=== PATIENT | female | born 1975 | race Caucasian/White ===

== ENCOUNTER → 2017-02-21 | Outpatient (CLI) | payer BC | LOC: BMCIMAGING 08:59 | PROVIDERS: ATTEND Obstetrics & Gynecology | DX: Z12.31 Encounter for screening mammogram for malignant neoplasm of breast (principal) | CPT/HCPCS: G0202 ==

== ENCOUNTER 2017-03-21 13:09 | Observation (INO) | payer BC ==
--- NOTE | 2017-03-21 13:25 | CPEKG ---
Heart Rate: 88 RR Interval: 682 P-R Interval: 128 QRSD Interval: 84 QT Interval: 368 QTC Interval: 446 P [place]: 63 QRS [place]: 65 T Wave [place]: 43 EKG Severity - NORMAL ECG - EKG Impression: SINUS RHYTHM Electronically Signed By: Cordelia Sin 21-Mar-2017 20:57:49
--- NOTE | 2017-03-21 13:25 | CPEKG ---
Heart Rate: 88 RR Interval: 682 P-R Interval: 128 QRSD Interval: 84 QT Interval: 368 QTC Interval: 446 P [place]: 63 QRS [place]: 65 T Wave [place]: 43 EKG Severity - NORMAL ECG - EKG Impression: SINUS RHYTHM Electronically Signed By: Cordelia Sin 21-Mar-2017 20:57:49
--- NOTE | 2017-03-21 13:47 | EDPHY ---
General Narrative: CHIEF COMPLAINT: Abnormal EKG, chest pain for 1 year HISTORY OF PRESENT ILLNESS: Patient complains of chest pain for nearly 1 year, and being sent here for possible abnormal EKG. She had an EKG done today as part of a physical for her work. There was reportedly abnormality of the EKG, thus they sent her here. She has had ongoing chest pain for approximately a year due to multiple orthopedic musculoskeletal injuries. It is a reproducible pain. She has been diagnosed with costochondritis after workup from outside facilities. She has been treated by physical therapy for this and anti-inflammatories by primary care physician. Pain is not exertional. It is worse with palpation on the ribs. Does not radiate. No shortness of breath. No diaphoresis. No nausea or vomiting. No recent travel or surgery. No history of venous thrombolic event. No exogenous hormone use. She no previous venous thrombolic event. She has no previous diagnosis of hypertension, diabetes, dyslipidemia coronary artery disease. No other associated complaints or modifying factors REVIEW OF SYSTEMS: Ten systems reviewed and are negative unless otherwise noted in the HPI PCP: Dr. Spaulding SPECIALISTS: None PAST MEDICAL HISTORY: None PAST SURGICAL HISTORY: Knee surgery x2 SOCIAL HISTORY: Nonsmoker. No alcohol. No drug use. 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 No wheezing or rhonchi or crackles. Cardiovascular: Regular rate and rhythm. No murmur. Pulses intact distally symmetrically Gastrointestinal: Abdomen is soft and nontender Back: non-tender, no bony abnormalities Neurological: A&O, nonfocal, normal gait Skin: Warm and dry, no rash Extremities: Nontender, no pedal edema Psychiatric: Mood and affect normal DIFFERENTIAL DIAGNOSES: Including but not limited to costochondritis, RC, pericarditis, ACS, coronary artery disease MDM: 1:48 p.m. Reportedly abnormal EKG pre-hospital that is not abnormal on my interpretation and that of Dr. Sin. EKG this facilities normal sinus rhythm with no ischemia. No dysrhythmia or cardiac conduction delay. Her chest pain that she describes is reproducible. It is consistent with previous musculoskeletal injuries. I have ordered laboratory studies to rule out ACS. She is in no acute distress. Vital signs are stable. Perc negative. 2:30 p.m. Laboratory studies thus far reveal negative CBC and chemistry. Troponin is positive although slightly elevated. EKG is unremarkable. This is been interviewed by Dr. Sin and myself. I discussed the case with Dr. Sin. He would like me to order echo and D-dimer and admit the patient to the hospital. Hospitalist has been paged 2:45 p.m. I discussed case with hospitalist Dr. Grey. He will admit the patient is service. He does request a D-dimer an echo which body been ordered. I will also consult Cardiology. 3:01 p.m. Case discussed with Cardiology GASTROENTEROLOGY NURSE, Vamsi. He will provide consultation. He will see the patient in the ED. 3:28 p.m. D-dimer is negative. Echo currently in progress 4:05 p.m. Echo was reportedly within normal limits per the Cardiology GASTROENTEROLOGY NURSE, Vamsi. He plans for CT coronary angiogram. She is admitted in stable condition awaiting bed placement. Vital signs remained stable. EKG interpretation: Dr. Sin Normal sinus rhythm. No ischemia. No bundle branch block - Diagnostics Imaging Results: Imaging Impressions Chest X-Ray 03/21/17 13:47 Impression: Clear lungs. No acute process. - History Smoking Status: Never smoked - Objective Vital Signs: Initial Vital Signs Temperature (C) 98.1 F 03/21/17 13:11 Heart Rate 84 03/21/17 13:11 Respiratory Rate 18 03/21/17 13:11 Blood Pressure 110/74 03/21/17 13:11 O2 Sat (%) 99 03/21/17 13:11 O2 Delivery Mode Room Air Allergies/Adverse Reactions: No Known Allergies Allergy (Verified 03/21/17 13:11) Home Medications: Medication Instructions Recorded NK [No Known Home Meds] 03/21/17 Laboratory Results: Laboratory Results 03/21/17 13:55 03/21/17 13:55 03/21/17 03/21/17 03/21/17 13:55 13:55 13:55 WBC RBC Hgb Hct MCV MCH MCHC RDW Plt Count MPV Neut % (Auto) Lymph % (Auto) [place] % (Auto) Eos % (Auto) Baso % (Auto) Nucleat RBC Rel Count Absolute Neuts (auto) Absolute Lymphs (auto) Absolute Monos (auto) Absolute Eos (auto) Absolute Basos (auto) Absolute Nucleated RBC Immature Gran % Immature Gran # PT INR APTT D-Dimer Sodium 144 mEq/L mEq/L (134-144) Potassium 3.6 mEq/L mEq/L (3.5-5.2) Chloride 101 mEq/L mEq/L (97-110) Carbon Dioxide 26 mEq/l mEq/l (22-31) Anion Gap 17 mEq/L H mEq/L (8-16) BUN 12 mg/dL mg/dL (7-23) Creatinine 0.7 mg/dL mg/dL (0.6-1.0) Estimated GFR > 60 Glucose 99 mg/dL mg/dL (70-100) Calcium 10.1 mg/dL mg/dL (8.5-10.4) Magnesium 1.7 mg/dL mg/dL (1.6-2.3) Troponin I 0.064 ng/mL H ng/mL (0.000-0.034) NT-Pro-B Natriuret Pep 89 pg/mL pg/mL (0-125) Lipase 72 IU/L IU/L (23-300) Beta HCG, Qual NEGATIVE 03/21/17 03/21/17 13:55 13:55 WBC 6.98 10^3/uL 10^3/uL (3.80-9.50) RBC 4.67 10^6/uL 10^6/uL (4.18-5.33) Hgb 15.2 g/dL g/dL (12.6-16.3) Hct 43.3 % % (38.0-47.0) MCV 92.7 fL fL (81.5-99.8) MCH 32.5 pg pg (27.9-34.1) MCHC 35.1 g/dL g/dL (32.4-36.7) RDW 11.7 % % (11.5-15.2) Plt Count 249 10^3/uL 10^3/uL (150-400) MPV 10.2 fL fL (8.7-11.7) Neut % (Auto) 66.4 % % (39.3-74.2) Lymph % (Auto) 26.5 % % (15.0-45.0) [place] % (Auto) 4.9 % % (4.5-13.0) Eos % (Auto) 2.0 % % (0.6-7.6) Baso % (Auto) 0.1 % L % (0.3-1.7) Nucleat RBC Rel Count 0.0 % % (0.0-0.2) Absolute Neuts (auto) 4.63 10^3/uL 10^3/uL (1.70-6.50) Absolute Lymphs (auto) 1.85 10^3/uL 10^3/uL (1.00-3.00) Absolute Monos (auto) 0.34 10^3/uL 10^3/uL (0.30-0.80) Absolute Eos (auto) 0.14 10^3/uL 10^3/uL (0.03-0.40) Absolute Basos (auto) 0.01 10^3/uL L 10^3/uL (0.02-0.10) Absolute Nucleated RBC 0.00 10^3/uL 10^3/uL (0-0.01) Immature Gran % 0.1 % % (0.0-1.1) Immature Gran # 0.01 10^3/uL 10^3/uL (0.00-0.10) PT 13.5 SEC SEC (12.0-15.0) INR 1.04 (0.83-1.16) APTT 27.7 SEC SEC (23.0-38.0) D-Dimer < 0.27 ug/mLFEU ug/mLFEU (0.00-0.50) Sodium Potassium Chloride Carbon Dioxide Anion Gap BUN Creatinine Estimated GFR Glucose Calcium Magnesium Troponin I NT-Pro-B Natriuret Pep Lipase Beta HCG, Qual Medications Given: Discontinued Medications Aspirin (Aspirin) 324 mg PO EDNOW ONE Stop: 03/21/17 14:39 Last Admin: 03/21/17 15:11 Dose: 324 mg Departure - Departure Disposition: [facility] Acute Clinical Impression: Acute chest pain, Elevated troponin Condition: Good
[2017-03-21 14:04] LABS: PLATELET COUNT 249 10^3/uL (150-400)
[2017-03-21 14:28] LABS: INR 1.04 (0.83-1.16); PROTIME(PATIENT) 13.5 SEC (12.0-15.0)
[2017-03-21] MEDS ORDERED: ASPIRIN 81 MG CHEWABLE TAB PO ONE (14:38)
[2017-03-21] MEDS ORDERED: ACETAMINOPHEN 325 MG TAB PO PRN (14:47)
[2017-03-21] MEDS ORDERED: ONDANSETRON 4 MG/2 ML VIAL IVP PRN (14:47)
[2017-03-21] MEDS ORDERED: ONDANSETRON DISINTEGRATING 4 MG TAB PO PRN (14:47)
[2017-03-21] MEDS ORDERED: ALBUTEROL 3 ML DEYVIAL IH PRN (14:47)
[2017-03-21] MEDS ORDERED: NITROGLYCERIN 0.4 MG BTL SL PRN (14:51)
--- NOTE | 2017-03-21 15:12 | PDGENHP ---
History and Physical - Chief Complaint CP - History of Present Illness Pt is a 41 yo female who was sent to the urgent care by her employer for the evaluation of CP which has been intermittent for about one year. At urgent care she reportedly had an abnormal EKG and was sent to the E.D. In the ED she had an indeterminate troponin. Her EKG reads NSR, but appears to have slight ST depression on V3, V4, V5. She has been given an full dose Aspirin. Cards has been consulted. TTE is pending, D-dimer is pending. Her other labs look unremarkable. She has hx of costonchondirits. She has been treated for this by her PCP with anti-inflammatories, as well as PT. No history of venous thrombolic event. No exogenous hormone use. She no previous venous thrombolic event. She has no previous diagnosis of hypertension , diabetes, dyslipidemia coronary artery disease. No other associated complaints or modifying factors PCP: Dr. Spaulding PAST MEDICAL HISTORY: costochondritis PAST SURGICAL HISTORY: Knee surgery x2 SOCIAL HISTORY: Nonsmoker. No alcohol. No drug use. 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 FAMILY HISTORY: no significant cardiac hx History Information - Allergies/Home Medication List Allergies/Adverse Reactions: No Known Allergies Allergy (Verified 03/21/17 13:11) Home Medications: NK [No Known Home Meds] 03/21/17 [Last Taken Unknown] I have personally reviewed and updated: medical history, social history - Social History Smoking Status: Never smoked Review of Systems Review of Systems: ROS: 10pt was reviewed & negative except for what was stated in HPI & below Physical Exam Physical Exam: Temp Pulse Resp BP Pulse Ox 36.7 C 84 18 110/74 99 03/21/17 13:11 03/21/17 13:11 03/21/17 13:11 03/21/17 13:11 03/21/17 13:11 Constitutional: no apparent distress Eyes: PERRL, EOMI Ears, Nose, Mouth, Throat: moist mucous membranes, hearing normal Cardiovascular: regular rate and rhythym, no murmur, rub, or gallop, other ( reproducible chest pain), No edema Respiratory: no respiratory distress, no rales or rhonchi, clear to auscultation Gastrointestinal: normoactive bowel sounds, soft, non-tender abdomen Skin: warm Musculoskeletal: full muscle strength Neurologic: AAOx3, sensation intact bilaterally Psychiatric: interacting appropriately, not anxious, not encephalopathic Lab Data & Imaging Review 03/21/17 13:55 03/21/17 13:55 WBC 6.98 10^3/uL (3.80-9.50) 03/21/17 13:55 RBC 4.67 10^6/uL (4.18-5.33) 03/21/17 13:55 Hgb 15.2 g/dL (12.6-16.3) 03/21/17 13:55 Hct 43.3 % (38.0-47.0) 03/21/17 13:55 MCV 92.7 fL (81.5-99.8) 03/21/17 13:55 MCH 32.5 pg (27.9-34.1) 03/21/17 13:55 MCHC 35.1 g/dL (32.4-36.7) 03/21/17 13:55 RDW 11.7 % (11.5-15.2) 03/21/17 13:55 Plt Count 249 10^3/uL (150-400) 03/21/17 13:55 MPV 10.2 fL (8.7-11.7) 03/21/17 13:55 Neut % (Auto) 66.4 % (39.3-74.2) 03/21/17 13:55 Lymph % (Auto) 26.5 % (15.0-45.0) 03/21/17 13:55 [place] % (Auto) 4.9 % (4.5-13.0) 03/21/17 13:55 Eos % (Auto) 2.0 % (0.6-7.6) 03/21/17 13:55 Baso % (Auto) 0.1 % (0.3-1.7) L 03/21/17 13:55 Nucleat RBC Rel Count 0.0 % (0.0-0.2) 03/21/17 13:55 Absolute Neuts (auto) 4.63 10^3/uL (1.70-6.50) 03/21/17 13:55 Absolute Lymphs (auto) 1.85 10^3/uL (1.00-3.00) 03/21/17 13:55 Absolute Monos (auto) 0.34 10^3/uL (0.30-0.80) 03/21/17 13:55 Absolute Eos (auto) 0.14 10^3/uL (0.03-0.40) 03/21/17 13:55 Absolute Basos (auto) 0.01 10^3/uL (0.02-0.10) L 03/21/17 13:55 Absolute Nucleated RBC 0.00 10^3/uL (0-0.01) 03/21/17 13:55 Immature Gran % 0.1 % (0.0-1.1) 03/21/17 13:55 Immature Gran # 0.01 10^3/uL (0.00-0.10) 03/21/17 13:55 PT 13.5 SEC (12.0-15.0) 03/21/17 13:55 INR 1.04 (0.83-1.16) 03/21/17 13:55 APTT 27.7 SEC (23.0-38.0) 03/21/17 13:55 Sodium 144 mEq/L (134-144) 03/21/17 13:55 Potassium 3.6 mEq/L (3.5-5.2) 03/21/17 13:55 Chloride 101 mEq/L (97-110) 03/21/17 13:55 Carbon Dioxide 26 mEq/l (22-31) 03/21/17 13:55 Anion Gap 17 mEq/L (8-16) H 03/21/17 13:55 BUN 12 mg/dL (7-23) 03/21/17 13:55 Creatinine 0.7 mg/dL (0.6-1.0) 03/21/17 13:55 Estimated GFR > 60 03/21/17 13:55 Glucose 99 mg/dL (70-100) 03/21/17 13:55 Calcium 10.1 mg/dL (8.5-10.4) 03/21/17 13:55 Troponin I 0.064 ng/mL (0.000-0.034) H 03/21/17 13:55 NT-Pro-B Natriuret Pep 89 pg/mL (0-125) 03/21/17 13:55 Lipase 72 IU/L (23-300) 03/21/17 13:55 Beta HCG, Qual NEGATIVE 03/21/17 13:55 Assessment & Plan Assessment: #Chest pain #indeterminate troponin #Abnormal EKG Plan: -Cards to see, await reccs -already received Aspirin -Serial trops, repeat EKG -TTE -D-dimer pending -SCD's
--- NOTE | 2017-03-21 15:44 | ECHO ---
[email or web address] [address] [address] Main: [phone] Fax: Transthoracic Echocardiogram Name: CONNIE JOHNSON MR#: [id number] Study Date: 03/21/2017 Study Time: 03:01 PM Date of : 1975 Age: 41 year(s) Height: 167.6 cm (66 in.) Weight: 61.24 kg (135 lb.) BSA: 1.69 m2 Gender: Female Examination: Echo Indication: Chest Pain, Abnormal EKG Image Quality: Contrast: Requested by: Fortunato Parker BP: 110 mmHg/67 mmHg Heart Rate: Rhythm: Normal sinus rhythm Indication: Chest Pain, Abnormal EKG Procedure Staff Expressive Art Therapist: Adolph Torers Reading Physician: Mulugeta Donaldson Requesting Provider: Conclusions: Normal study Measurements: Chambers Valvular Assessment AV/MV Valvular Assessment TV/PV Normal Normal Normal Name Value Range Name Value Range Name Value Range Ao Kat (MM): 2.7 cm (2.2 cm-3.7 AV Vmax: 1.32 m/s (1 m/s-1.7 TR Vmax: 2.31 mm/s ( - ) cm) m/s) TR PGmax: 21 mmHg ( - ) IVSd (2D): 0.6 cm (0.6 cm-1.1 AV maxP mmHg ( - ) syst. PAP: 26 mmHg ( - ) cm) LVOT Vmax: 0.99 m/s (0.7 m/s-1.1 PV Vmax: 0.98 m/s (0.6 m/s-0.9 LVDd (2D): 4.6 cm (3.9 cm-5.3 m/s) m/s) cm) AR (PHT): 452 ms ( - ) PV PGmax: 4 mmHg ( - ) LVDs (2D): 3.1 cm (2.1 cm-4 MV E Vmax: 0.78 m/s ( - ) cm) MV A Vmax: 0.46 m/s ( - ) LVPWd (2D): 0.8 cm ( - ) MV E/A: 1.70 ( - ) LVEF (2D): 62 (>=54 %) Continued Measurements: Chambers Valvular Assessment AV/MV Valvular Assessment TV/PV Name Value Name Value Name Value LADs Lon.8 cm MV E/E' Septal: 9.80 CVP (est.): 5 mmHg LA Area: 13.0 cm2 MV E/E' Lateral: 6.20 LA Volume: 26 ml AR Vmax: 2.46 cm/s LA Volume Index: 15.4 ml/m2 Findings: Left Ventricle: Normal size left ventricle. No LV hypertrophy. Normal global systolic LV function. EF is 62 %. No Patient: CONNIE JOHNSON Study Date: 03/21/2017 Page 1 of 2 03:01 PM regional wall motion abnormality. Normal diastolic LV function. Right Ventricle: Normal size right ventricle. Normal RV function. Left Atrium: The left atrium is normal in size. Right Atrium: The right atrium is normal in size. Mitral Valve: The mitral valve is normal in appearance and function. Aortic Valve: The aortic valve is normal in appearance and function. The aortic valve is tri-leaflet. Trivial aortic valve regurgitation. Tricuspid Valve: The tricuspid valve is normal in appearance and function. Pulmonic Valve: The pulmonic valve is normal in appearance and function. Aorta: The aorta is normal. Pericardium: Trivial pericardial effusion. No pleural effusion. Exam Comments: Ectopy noted during exam. Trivial anterior pericardial effusion.. (No Signature Object) Patient: CONNIE JOHNSON Study Date: 03/21/2017 Page 2 of 2 03:01 PM [id number]
--- NOTE | 2017-03-21 15:44 | ECHO ---
[email or web address] [address] [address] Main: [phone] Fax: Transthoracic Echocardiogram Name: CONNIE JOHNSON MR#: [id number] Study Date: 03/21/2017 Study Time: 03:01 PM Date of : 1975 Age: 41 year(s) Height: 167.6 cm (66 in.) Weight: 61.24 kg (135 lb.) BSA: 1.69 m2 Gender: Female Examination: Echo Indication: Chest Pain, Abnormal EKG Image Quality: Contrast: Requested by: Fortunato Parker BP: 110 mmHg/67 mmHg Heart Rate: Rhythm: Normal sinus rhythm Indication: Chest Pain, Abnormal EKG Procedure Staff Grant Writer: Adolph Torres Reading Physician: Mulugeta Donaldson Requesting Provider: Conclusions: Normal study Measurements: Chambers Valvular Assessment AV/MV Valvular Assessment TV/PV Normal Normal Normal Name Value Range Name Value Range Name Value Range Ao Kat (MM): 2.7 cm (2.2 cm-3.7 AV Vmax: 1.32 m/s (1 m/s-1.7 TR Vmax: 2.31 mm/s ( - ) cm) m/s) TR PGmax: 21 mmHg ( - ) IVSd (2D): 0.6 cm (0.6 cm-1.1 AV maxP mmHg ( - ) syst. PAP: 26 mmHg ( - ) cm) LVOT Vmax: 0.99 m/s (0.7 m/s-1.1 PV Vmax: 0.98 m/s (0.6 m/s-0.9 LVDd (2D): 4.6 cm (3.9 cm-5.3 m/s) m/s) cm) AR (PHT): 452 ms ( - ) PV PGmax: 4 mmHg ( - ) LVDs (2D): 3.1 cm (2.1 cm-4 MV E Vmax: 0.78 m/s ( - ) cm) MV A Vmax: 0.46 m/s ( - ) LVPWd (2D): 0.8 cm ( - ) MV E/A: 1.70 ( - ) LVEF (2D): 62 (>=54 %) Continued Measurements: Chambers Valvular Assessment AV/MV Valvular Assessment TV/PV Name Value Name Value Name Value LADs Lon.8 cm MV E/E' Septal: 9.80 CVP (est.): 5 mmHg LA Area: 13.0 cm2 MV E/E' Lateral: 6.20 LA Volume: 26 ml AR Vmax: 2.46 cm/s LA Volume Index: 15.4 ml/m2 Findings: Left Ventricle: Normal size left ventricle. No LV hypertrophy. Normal global systolic LV function. EF is 62 %. No Patient: CONNIE JOHNSON Study Date: 03/21/2017 Page 1 of 2 03:01 PM regional wall motion abnormality. Normal diastolic LV function. Right Ventricle: Normal size right ventricle. Normal RV function. Left Atrium: The left atrium is normal in size. Right Atrium: The right atrium is normal in size. Mitral Valve: The mitral valve is normal in appearance and function. Aortic Valve: The aortic valve is normal in appearance and function. The aortic valve is tri-leaflet. Trivial aortic valve regurgitation. Tricuspid Valve: The tricuspid valve is normal in appearance and function. Pulmonic Valve: The pulmonic valve is normal in appearance and function. Aorta: The aorta is normal. Pericardium: Trivial pericardial effusion. No pleural effusion. Exam Comments: Ectopy noted during exam. Trivial anterior pericardial effusion.. (No Signature Object) Patient: CONNIE JOHNSON Study Date: 03/21/2017 Page 2 of 2 03:01 PM [id number]
--- NOTE | 2017-03-21 15:44 | ECHO ---
[email or web address] [address] [address] Main: [phone] Fax: Transthoracic Echocardiogram Name: CONNIE JOHNSON MR#: [id number] Study Date: 03/21/2017 Study Time: 03:01 PM Date of : 1975 Age: 41 year(s) Height: 167.6 cm (66 in.) Weight: 61.24 kg (135 lb.) BSA: 1.69 m2 Gender: Female Examination: Echo Indication: Chest Pain, Abnormal EKG Image Quality: Contrast: Requested by: Fortunato Parker BP: 110 mmHg/67 mmHg Heart Rate: Rhythm: Normal sinus rhythm Indication: Chest Pain, Abnormal EKG Procedure Staff Motion Picture Scene Builder: Adolph Torres Reading Physician: Mulugeta Donaldson Requesting Provider: Conclusions: Normal study Measurements: Chambers Valvular Assessment AV/MV Valvular Assessment TV/PV Normal Normal Normal Name Value Range Name Value Range Name Value Range Ao Kat (MM): 2.7 cm (2.2 cm-3.7 AV Vmax: 1.32 m/s (1 m/s-1.7 TR Vmax: 2.31 mm/s ( - ) cm) m/s) TR PGmax: 21 mmHg ( - ) IVSd (2D): 0.6 cm (0.6 cm-1.1 AV maxP mmHg ( - ) syst. PAP: 26 mmHg ( - ) cm) LVOT Vmax: 0.99 m/s (0.7 m/s-1.1 PV Vmax: 0.98 m/s (0.6 m/s-0.9 LVDd (2D): 4.6 cm (3.9 cm-5.3 m/s) m/s) cm) AR (PHT): 452 ms ( - ) PV PGmax: 4 mmHg ( - ) LVDs (2D): 3.1 cm (2.1 cm-4 MV E Vmax: 0.78 m/s ( - ) cm) MV A Vmax: 0.46 m/s ( - ) LVPWd (2D): 0.8 cm ( - ) MV E/A: 1.70 ( - ) LVEF (2D): 62 (>=54 %) Continued Measurements: Chambers Valvular Assessment AV/MV Valvular Assessment TV/PV Name Value Name Value Name Value LADs Lon.8 cm MV E/E' Septal: 9.80 CVP (est.): 5 mmHg LA Area: 13.0 cm2 MV E/E' Lateral: 6.20 LA Volume: 26 ml AR Vmax: 2.46 cm/s LA Volume Index: 15.4 ml/m2 Findings: Left Ventricle: Normal size left ventricle. No LV hypertrophy. Normal global systolic LV function. EF is 62 %. No Patient: CONNIE JOHNSON Study Date: 03/21/2017 Page 1 of 2 03:01 PM regional wall motion abnormality. Normal diastolic LV function. Right Ventricle: Normal size right ventricle. Normal RV function. Left Atrium: The left atrium is normal in size. Right Atrium: The right atrium is normal in size. Mitral Valve: The mitral valve is normal in appearance and function. Aortic Valve: The aortic valve is normal in appearance and function. The aortic valve is tri-leaflet. Trivial aortic valve regurgitation. Tricuspid Valve: The tricuspid valve is normal in appearance and function. Pulmonic Valve: The pulmonic valve is normal in appearance and function. Aorta: The aorta is normal. Pericardium: Trivial pericardial effusion. No pleural effusion. Exam Comments: Ectopy noted during exam. Trivial anterior pericardial effusion.. (No Signature Object) Patient: CONNIE JOHNSON Study Date: 03/21/2017 Page 2 of 2 03:01 PM [id number]
--- NOTE | 2017-03-21 15:52 | CPEKG ---
Heart Rate: 77 RR Interval: 779 P-R Interval: 132 QRSD Interval: 76 QT Interval: 392 QTC Interval: 444 P [place]: 61 QRS [place]: 56 T Wave [place]: 60 EKG Severity - ABNORMAL ECG - EKG Impression: SINUS RHYTHM EKG Impression: MULTIPLE ATRIAL PREMATURE COMPLEXES Electronically Signed By: Cordelia Sin 21-Mar-2017 20:57:49
--- NOTE | 2017-03-21 15:52 | CPEKG ---
Heart Rate: 77 RR Interval: 779 P-R Interval: 132 QRSD Interval: 76 QT Interval: 392 QTC Interval: 444 P [place]: 61 QRS [place]: 56 T Wave [place]: 60 EKG Severity - ABNORMAL ECG - EKG Impression: SINUS RHYTHM EKG Impression: MULTIPLE ATRIAL PREMATURE COMPLEXES Electronically Signed By: Cordelia Sin 21-Mar-2017 20:57:49
[2017-03-21] MEDS ORDERED: METOPROLOL TARTRATE 25 MG TAB PO ONE (16:00)
[2017-03-21] MEDS ORDERED: IOPAMIDOL (ISOVUE 370) 100 ML BTL IV ONE (17:29)
--- NOTE | 2017-03-22 00:26 | GCON ---
[f rep st] CONSULTATION CARDIOLOGY CONSULTATION. INDICATION FOR CARDIOLOGY CONSULTATION: Chest pressure, indeterminate troponin level. HISTORY OF PRESENT ILLNESS: The patient is a 41-year-old female, reporting no significant past histo ry of any cardiac disease. She does admit that since May of this year she has been having ongoin g chest pressure, reporting that this has worsened. She feels that this is a constant dull pain, ritter s worsen with physical movement. She has been diagnosed with costochondritis by her primary physicia n about 2 months ago and has been working with Physical Therapy, reporting no significant change in s ymptoms. She reports the chest pressure is midsternal, which radiates into her right arm; it is repr oducible with palpitation. She does admit that she is uncertain, but may feel that she may have been mildly short of breath with exertion, but this is not consistent with any chest pressure or pain. S he does report with the chest pressure there are no associated symptoms of nausea and diaphoresis. T audrey, as part of a work physical to go out of the country, she was being seen at an urgent care. The re, she underwent an electrocardiogram, and raised concerns by the staff there, especially with repor merlin episode of chest pressure, and was asked to go to the emergency department. Upon arrival to [facility], an initial electrocardiogram was done. It does show sinus rhythm/arrhythmia, rare premature junctio nal contractions, with no significant ST, T-wave, or Q-waves suggestive of ischemia or infarction. A chest x-ray was done; there was noted no acute cardiopulmonary process. Initial laboratory studies showed fairly normal electrolytes, renal function, negative D-dimer, but she was noted to have an ind eterminate troponin at 0.064. No anemia noted. She denies of any recent fevers, chills, or night sw eats. Reports has had no palpitations, orthopnea, PND, edema, lightheadedness, near-syncope, or sync opal events. Patient reports no significant cardiac risk factors and has no family history of any si gnificant coronary artery disease. PAST MEDICAL HISTORY: Patient reports costochondritis diagnosed by her PCP, and she has been working with Physical Therapy around 2 months ago. PAST SURGICAL HISTORY: Patient reports bilateral arthroscopic surgery to the knees around 15 years a go. FAMILY HISTORY: Patient reports mother has history of paroxysmal atrial fibrillation, but no signifi cant family history of coronary artery disease and denies of any significant family history of aragon ry artery disease at early onset. SOCIAL HISTORY: She is a microbiologist. She is . She has 1 child, an 8-year-old girl who i s alive and well. Denies of any tobacco abuse. Reports drinking 2 cups of wine on a daily basis. D enies of any illicit drug use. Does report rare marijuana use, less than once every 2-3 months. ALLERGIES: No known drug allergies. MEDICATIONS: At home, patient reports that she occasionally uses Celebrex for osteoarthritis, and sanya moreland has used it for diagnosis of costochondritis, which reports mild improvement. Also, Tylenol No. 3 has helped with her pain, too. REVIEW OF SYSTEMS: A 10-point review of systems on this patient all negative except as mentioned abo ve. PHYSICAL EXAMINATION: GENERAL APPEARANCE: Thin, well-groomed female. She is alert and or iented to person, place, time, and situation. Appears to be under no acute distress. VITAL SIGNS: Current blood pressure 114/73, heart rate is 62, sinus rhythm on the monitor, respirations are 18, sa turating 96% on room air, temperature 36.7 degrees Celsius. HEENT: Head is normocephalic. Lips and tongue are pink moist with no signs of cyanosis. Conjunctivae pink. NECK: Trachea is midline; +2 carotid pulses bilateral. No auscultated bruits; no jugular vein distention. RESPIRATORY: Lungs ar e clear to auscultation. No rhonchi, rales, or wheezes. No accessory muscle use. No intercostal mu scle retraction noted. CARDIAC: Regular rate, regular rhythm. S1, S2. No S3, S4, gallops, rubs, o r murmurs noted. ABDOMEN: Soft; nontender; bowel sounds x4 quadrants; no organomegaly; no palpable masses. SKIN: [place], warm, dry; no cyanosis, no clubbing, no peripheral edema. VASCULAR: +2 caroti ds bilateral, +2 radials bilateral, +2 dorsal pedal and posterior tibial pulses bilateral. LABORATORY DATA: Laboratory studies drawn today show WBC of 6.98, hemoglobin 15.2, hematocrit of 43. 3, platelet count of 249. INR was 1.04. D-dimer less than 0.27. Sodium 144, potassium 3.6, chlorid e 101, CO2 of 26, BUN 12, creatinine 0.7. Glucose 99, calcium 10.1, magnesium 1.7. Troponin 0.064. ProBNP 89. Lipase is 72. Patient is negative for . IMAGING DATA: Initial electrocardiogram as mentioned above. Chest x-ray as mentioned above. Repeat ed electrocardiogram done at 1529 today shows sinus rhythm with normal axis; no significant ST or T-w ave abnormalities suggesting of ischemia. Rare premature atrial contraction. Reviewing electrocardi ograms done at urgent care, both EKGs provided are very rough with significant artifact, showing righ t axis deviation, questioning possible lead reversal. Echocardiogram done today showing normal LV sy stolic function with no wall motion abnormalities, normal ejection fraction, normal RV size and systo lic function. Both atria is within normal limits, trivial AI. Trivial pericardial effusion with no pleural effusion. ASSESSMENT AND PLAN: Chest pain: Patient reporting ongoing history of chest pain since the beginnin g of the year, feels like mildly worsening over the last 2 months, has been treated for costochondrit is by Physical Therapy and primary care. Pain is reproducible with palpitation of her chest. Patien t with noted indeterminate troponin level at 0.064. Echocardiogram showing normal LV wall motion wit h normal ejection fraction. Patient reports no recent fevers, chills, or night sweats. No pericardi al rub noted on physical examination. Negative D-dimer. After discussing with Dr. Donalsdon, it was felt that patient would be a candidate for evaluation of coronary artery ischemia and disease by unde rgoing CT coronary angio. If negative, then patient can be discharged home. If positive, then patie nt will be made n.p.o. and plan on coronary catheterization. She has been premedicated with metoprol ol tartrate at 25 mg to have her heart rate slowed down for the testing. Plan has been discussed wit h, as mentioned above, Dr. Donaldson and Dr. Grey of [facility]. Will be glad to follow yuli ulloa with you. /[id number]/MODL
[2017-03-22 05:31] VITALS: O2SAT 96
[2017-03-22 05:34] LABS: PLATELET COUNT 237 10^3/uL (150-400)
[2017-03-22 07:18] VITALS: RESP 15; TEMP 98.3
--- NOTE | 2017-03-22 08:44 | CPEKG ---
Heart Rate: 71 RR Interval: 845 P-R Interval: 140 QRSD Interval: 76 QT Interval: 388 QTC Interval: 422 P [place]: 58 QRS [place]: 76 T Wave [place]: 63 EKG Severity - NORMAL ECG - EKG Impression: SINUS RHYTHM Electronically Signed By: Silvino Chan 22-Mar-2017 10:58:58
[2017-03-22 10:12] VITALS: BP 102/63; PULSE 78
--- NOTE | 2017-03-22 12:35 | SOAPPROG ---
SOAP Progress Note Assessment/Plan: Assessment: 1. Musculoskeletal chest pain. 2. Mild elevation in troponin 3. Hx. of eczema 4. Query uterine discomfort. Impression: I reviewed patient's CT coronary angiogram which shows angiographically normal coronary arteries without atherosclerosis. She has normal left ventricular systolic function without evidence of structural heart disease. There was no parenchymal lung abnormalities. Her laboratory data continues to show low level troponin. Patient is complaining of uterine discomfort. I am curious whether this could be the etiology. I cannot exclude occult myocarditis. Her clinical history is completely benign. She has no clinical symptomatology. Recommendations: 10 days nonsteroidal anti inflammatory drugs uninterrupted. Follow-up echocardiogram at 30-45 days prior to leaving for [facility] Clinical follow-up with Cardiology for development of symptoms prior to this time. 03/22/17 12:38 Subjective: Feeling well. No change in clinical status with discomfort of the chest wall to palpation. Similar pain over the last several months. She has no exertional limitations and is active kickboxing and mountain bike riding without limitation. She has had no fever or chills. She denies palpitations syncope or near syncope. She has had no PND orthopnea. She has a history of eczema. She also complains of uterine discomfort. She was to see her OBGYN yesterday. Objective: Vital Signs Temp Pulse Resp BP Pulse Ox 36.8 C 78 15 102/63 96 03/22/17 07:14 03/22/17 10:07 03/22/17 07:14 03/22/17 10:07 03/22/17 07:14 Laboratory Results 03/22/17 04:30 03/22/17 04:30 03/21/17 03/22/17 03/23/17 05:59 05:59 05:59 Intake Total 700 250 Balance 700 250 PT 13.5 SEC (12.0-15.0) 03/21/17 13:55 INR 1.04 (0.83-1.16) 03/21/17 13:55 Laboratory Tests 03/21/17 03/21/17 03/22/17 13:55 22:23 04:30 Troponin I 0.064 H 0.068 H 0.089 H NT-Pro-B Natriuret Pep 89 Physical Exam - Physical Exam General Appearance: alert, no apparent distress EENT: PERRL/EOMI, normal ENT inspection Neck: non-tender, full range of motion Respiratory: chest non-tender, lungs clear, normal breath sounds Cardiac/Chest: normal peripheral pulses, regular rate, rhythm, No edema, No gallop, No JVD Peripheral Pulses: 2+: carotid (R), carotid (L), femoral (R), femoral (L), dorsalis-pedis (R), dorsalis-pedis (L) Abdomen: normal bowel sounds, soft, other (Tenderness to deep palpation in the pubic region.) Skin: warm/dry, other (Eczema on the forearms) Extremities: normal range of motion, non-tender, No pedal edema, No calf tenderness Neuro/Psych: no motor/sensory deficits, alert, normal mood/affect, oriented x 3 ICD10 Worksheet Patient Problems: Problems Problem Status Onset Acute chest pain Acute Elevated troponin Acute Review of Systems - Review of Systems Constitutional: denies: chills, fever, malaise EENTM: no symptoms reported Respiratory: no symptoms reported Cardiac: no symptoms reported Gastrointestinal/Abdominal: abdominal pain Genitourinary: no symptoms Musculoskelatal: other (Chest wall pain) Skin: dryness, lesions Neurological: no symptoms Hematologic/Lymphatic: no symptoms reported Immunologic/allergic: no symptoms reported Past Medical History - Personal History LMP (Females 10-55): 1-7 Days Ago Current Tetanus/Diphtheria Vaccine: No Tetanus Vaccine Date: - Medical/Surgical History Hx Asthma: No Hx Chronic Respiratory Disease: No Hx Cardiac Disease: No Hx Diabetes: No Hx Renal Disease: No Hx Alcoholism: No Hx Cirrhosis: No Hx HIV/AIDS: No Hx Splenectomy or Spleen Trauma: No Other PMH: costocondritis - Social History Smoking Status: Never smoked Additional Social History: Patient is planning to travel to [facility] at the end of the month.
--- NOTE | 2017-03-22 12:43 | ASMTCMCOM ---
CM Note CM Note Notes: 03/22/2017 Case Management Note Reviewed chart. No case management d/c needs identified d/t pt age, activity levels prior to admission and marital status. Case Management d/c poc: Home independent when medically stable with follow up as directed. Case Management available if needs change. Date Signed: 03/22/2017 12:43 PM Electronically Signed By:Cydney Martinez RN
--- NOTE | 2017-03-22 15:30 | GDS ---
[f rep st] DISCHARGE SUMMARY CONSULTATIONS: Florencio Ledesma MD and Mulugeta Donaldson MD, cardiology. DISCHARGE DIAGNOSIS: Chest pain. HISTORY OF PRESENT ILLNESS: The patient is a pleasant 41-year-old female with no major past medical history, who was having an EKG done with her physician in anticipation of travel [facility]. Her ECG in the emergency room showed a slight ST depression in V3, V4 and V5. Her initial troponin was also mildly elevated at 0.064. This was trended overnight and went to 0.068 and 0.089. Cardiol sis was consulted on the case and a CT of the heart was recommended. The radiologic reading showed n ormal appearance of the right coronary artery with no stenosis. Wall motion limited the assessment o f the LAD and circumflex artery. Dr. Donaldson was able to review the study as well and felt it was n ormal. Dr. Donaldson recommended a 10 day course of NSAIDS for possible myocarditis as this could not be excluded based upon her symptoms and blood work findings. She has tolerated Celebrex in the past so I provided her with a prescription for Celebrex. We did talk as well that, if the Celebrex did n ot seem to have any effect on the chest symptoms, that she may consider trying Ibuprofen at 400 to 60 0 mg 3 times a day in place on the Celebrex. PHYSICAL EXAMINATION: On day of discharge: VITAL SIGNS: Temperature 36.8, blood pressure 92/56, he art rate 74, respirations 15, sating 96% on room air. GENERAL: Patient resting comfortably in a haritha ir at the bedside in no acute distress. HEART: Regular, no murmurs or rubs are appreciated. LUNGS: Clear to auscultation, normal respiratory effort. ABDOMEN: Soft, nontender, nondistended. GENITO URINARY: No Quiñones catheter in place. EXTREMITIES: No significant pitting edema. MUSCULOSKELETAL: No calf pain with palpation. NOTABLE STUDIES: 1. Chest x-ray: Clear lungs, no acute process. 2. Cardiac CT: Motion limited study with limited assessment of the LAD and circumflex arteries with normal appearance of the right coronary artery and no appreciable stenosis in the motion limited ves sels. 3. Echocardiogram: Trivial pericardial effusion, normal aorta otherwise, no significant valvular ab normalities noted. Estimated ejection fraction at 62% with normal left ventricular systolic function . 4. Troponins: 0.064, 0.068, 0.089. LDL cholesterol 61. TSH 2.4. Beta hCG negative. Lipase 72. B CHANNEL LIP WETTER 89. A1c 5.2. ESR 7. D-dimer was less than 0.27 which is negative. DISCHARGE MEDICATIONS: Celebrex 100 mg twice a day. The patient was instructed to take continuously for 10 days. DISCHARGE INSTRUCTIONS: A followup visit with [facility] is recommended to have an echocardiogram 30-40 days prior to leaving [facility]. A followup visit with her primary care provider is also re commended. /[id number]/MODL
--- NOTE | 2017-03-22 17:17 | ASDISCHSUM ---
Discharge Information Plan Status:Home with No Needs Medically Cleared to Leave:03/22/2017 Discharge Date:03/22/2017 03:52 PM CM D/C Disposition:Home, Routine, Self-Care ADT D/C Disposition:Home, Routine, Self-Care Projected Discharge Date:03/22/2017 03:52 PM Transportation at D/C:Family Discharge Delay Reason: Follow-Up Date:03/22/2017 03:52 PM Discharge Slot: Final Diagnosis: Placement Information Patient Contact Information Contact Name:TRENA Relationship: Address:[address] [place] [address] City:[place] Alternate Phone: State/Zip Code:[place] [address] Email: Financial Information Financial Class:HMO and PPO Plans Primary Plan Desc: OUT OF STATE PPO Primary Plan Number:[id number] Secondary Plan Desc: Secondary Plan Number: Assessment Information BC CM Progress Note CM Note CM Note Notes: 03/22/2017 Case Management Note Reviewed chart. No case management d/c needs identified d/t pt age, activity levels prior to admission and marital status. Case Management d/c poc: Home independent when medically stable with follow up as directed. Case Management available if needs change. Date Signed: 03/22/2017 12:43 PM Electronically Signed By:Cydney Martinez RN Intervention Information
--- NOTE | 2017-03-22 17:17 | ASDISCHSUM ---
Discharge Information Plan Status:Home with No Needs Medically Cleared to Leave:03/22/2017 Discharge Date:03/22/2017 03:52 PM CM D/C Disposition:Home, Routine, Self-Care ADT D/C Disposition:Home, Routine, Self-Care Projected Discharge Date:03/22/2017 03:52 PM Transportation at D/C:Family Discharge Delay Reason: Follow-Up Date:03/22/2017 03:52 PM Discharge Slot: Final Diagnosis: Placement Information Patient Contact Information Contact Name:TRENA Relationship: Address:[address] [place] [address] City:[place] Alternate Phone: State/Zip Code:[place] [address] Email: Financial Information Financial Class:HMO and PPO Plans Primary Plan Desc: OUT OF STATE PPO Primary Plan Number:[id number] Secondary Plan Desc: Secondary Plan Number: Assessment Information BC CM Progress Note CM Note CM Note Notes: 03/22/2017 Case Management Note Reviewed chart. No case management d/c needs identified d/t pt age, activity levels prior to admission and marital status. Case Management d/c poc: Home independent when medically stable with follow up as directed. Case Management available if needs change. Date Signed: 03/22/2017 12:43 PM Electronically Signed By:Cydney Martinez RN Intervention Information
--- NOTE | 2017-03-22 17:17 | ASDISCHSUM ---
Discharge Information Plan Status:Home with No Needs Medically Cleared to Leave:03/22/2017 Discharge Date:03/22/2017 03:52 PM CM D/C Disposition:Home, Routine, Self-Care ADT D/C Disposition:Home, Routine, Self-Care Projected Discharge Date:03/22/2017 03:52 PM Transportation at D/C:Family Discharge Delay Reason: Follow-Up Date:03/22/2017 03:52 PM Discharge Slot: Final Diagnosis: Placement Information Patient Contact Information Contact Name:TRENA Relationship: Address:[address] [place] [address] City:[place] Alternate Phone: State/Zip Code:[place] [address] Email: Financial Information Financial Class:HMO and PPO Plans Primary Plan Desc: OUT OF STATE PPO Primary Plan Number:[id number] Secondary Plan Desc: Secondary Plan Number: Assessment Information BC CM Progress Note CM Note CM Note Notes: 03/22/2017 Case Management Note Reviewed chart. No case management d/c needs identified d/t pt age, activity levels prior to admission and marital status. Case Management d/c poc: Home independent when medically stable with follow up as directed. Case Management available if needs change. Date Signed: 03/22/2017 12:43 PM Electronically Signed By:Cydney Martinez RN Intervention Information
== END 2017-03-22 15:52 | disposition home or self-care (01) ==
LOC: F2W 17:25
PROVIDERS: ADMIT Family Medicine; ATTEND Internal Medicine
DX: R07.89 Other chest pain (principal); R79.89 Other specified abnormal findings of blood chemistry; R10.2 Pelvic and perineal pain; Z86.79 Personal history of other diseases of the circulatory system
CPT/HCPCS: 71020; 75574; 93005; 93306; G0378; Q9967

== ENCOUNTER → 2018-07-16 | Outpatient (CLI) | payer BC | LOC: BMCIMAGING 13:06 | PROVIDERS: ATTEND Obstetrics & Gynecology | DX: Z12.31 Encounter for screening mammogram for malignant neoplasm of breast (principal) ==